=== PATIENT | male | born 1945 | race Caucasian/White ===

== ENCOUNTER 2020-08-07 18:14 | Emergency (ER) | payer MEDICARE, OTHER ==
[~2020-08-07 18:14] MED LIST: ALLERGY RELIEF10 MG PO; ASPIRIN81 MG PO; COREG 12.5MG12.5 MG PO; COREG 25MG TAB25 MG PO; ELIQUIS5 MG PO; FUROSEMIDE10 MG/1 M1 PO; IMDUR ER TAB 3030 MG PO; LASIX40 MG PO; LIPITOR TAB 2020 MG PO; LISINOPRIL5 MG PO; NITROGLYCERIN0.4 MG SL; PLAVIX 75 MG TA75 MG PO; POTASSIUM CHLO20 ME2 PO; TYLENOL 500 MG500 MG PO
[2020-08-07 19:47] LABS: HEMOGLOBIN 15.8 gm/dl (14.0-17.5); RED BLOOD COUNT 4.98 M/UL (4.20-5.50); WHITE BLOOD COUNT 8.3 K/UL (4.5-11.0)
[2020-08-07 20:06] LABS: BUN/CREATININE RATIO 22 (0-10)
== END 2020-08-07 19:55 | disposition home or self-care (01) ==
LOC: ER1 18:14
PROVIDERS: Emergency Medicine
DX: I48.91 Unspecified atrial fibrillation (principal); I95.9 Hypotension, unspecified; Z79.01 Long term (current) use of anticoagulants; Z79.899 Other long term (current) drug therapy
CPT/HCPCS: 80048; 82550; 82553; 83735; 83874; 84484; 85025; 93005; 99285

== ENCOUNTER → 2020-09-18 | Outpatient (CLI) | payer MEDICARE, OTHER | LOC: RT 12:06 | DX: I48.19 Other persistent atrial fibrillation (principal); R94.31 Abnormal electrocardiogram [ECG] [EKG] | CPT/HCPCS: 93005 ==